=== PATIENT | female | born 1955 | race African-American/Black ===

== ENCOUNTER 2019-02-14 17:03 | Emergency (ER) | payer MEDICAID ==
[~2019-02-14] VITALS: Ht 160 cm; Wt 75.0 kg
[2019-02-15 02:20] LABS: BASOPHILS % 0.8 % (0.0-2.0); EOSINOPHILS % 3.8 % (0.0-5.0); HEMATOCRIT. 45.2 % (36.0-48.0); HEMOGLOBIN. 15.2 g/dL (12.0-16.0); LYMPHOCYTES % 47.9 % (20.0-50.0); MEAN CORPUSCULAR HEMOGLOBIN 31.3 pg (28.0-32.0); MEAN CORPUSCULAR VOLUME 92.9 fL (81.0-99.0); MEAN PLATELET VOLUME 9.2 fl (7.4-10.4); MONOCYTES % 6.8 % (2.0-8.0); NEUTROPHILS % 40.7 % (40.0-76.0); PLATELET 312 x1000/uL (130-400); RED BLOOD CELL COUNT 4.86 mill/uL (4.2-5.4); RED CELL DISTRIBUTION WIDTH 13.6 % (11.6-14.6)
[2019-02-15 02:20] LABS: CLARITY URINE CLEAR (CLEAR); COLOR URINE YELLOW (YELLOW); KETONES URINE NEGATIVE (NEGATIVE); LEUKOCYTE ESTERASE URINE 3+ (NEGATIVE); NITRITE URINE NEGATIVE (NEGATIVE); OCCULT BLOOD URINE NEGATIVE (NEGATIVE); PH URINE 6.5 (4.5-8.0); PROTEIN URINE NEGATIVE (NEGATIVE); SPECIFIC GRAVITY URINE 1.019 (1.005-1.030); UROBILINOGEN URINE 0.2 E.U./dL (0.2-1.0)
[2019-02-15 02:21] LABS: CHLORIDE 107 mEq/L (98-107)
[2019-02-15 02:23] LABS: PROTHROMBIN TIME 10.7 sec (9.6-11.0)
[2019-02-15 05:12] VITALS: BP 147/86
== END 2019-02-15 05:13 | disposition home or self-care (01) ==
LOC: ER 17:03
DX: R42 Dizziness and giddiness (principal); J32.9 Chronic sinusitis, unspecified
CPT/HCPCS: 36415; 71045; 84484; 99284

== ENCOUNTER 2022-09-12 00:32 | Emergency (ER) | payer MEDICAID, MEDICARE ==
[~2022-09-12] VITALS: Ht 170.2 cm; Wt 73.0 kg
[2022-09-12] MEDS ORDERED: OXYMETAZOLINE HCL NASAL SPRAY 15ML BOTHNSTRLS SCH (01:15)
[2022-09-12 02:30] VITALS: BP 142/71
== END 2022-09-12 02:47 | disposition home or self-care (01) ==
LOC: ER 00:32
DX: R04.0 Epistaxis (principal); I10 Essential (primary) hypertension; E78.00 Pure hypercholesterolemia, unspecified; Z86.73 Personal history of transient ischemic attack (TIA), and cerebral infarction without residual deficits; Z98.890 Other specified postprocedural states; Z91.018 Allergy to other foods; Z88.0 Allergy status to penicillin
CPT/HCPCS: 99283; Z7610